=== PATIENT | female | born 2000 | race Caucasian/White ===

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

== ENCOUNTER 2021-12-20 21:32 | Observation (INO) | payer OTHER, MEDICAID, SELFPAY ==
[2021-12-20 21:33] VITALS: BP 157/101; PULSE 98; RESP 14; TEMP 36.1; O2SAT 100; BMI 33.3
--- NOTE | 2021-12-20 21:52 | EDS_ITS ---
HPI HPI - GI History of Present Illness Chief Complaint: Abd Pain Narrative Narrative: 21-year-old female presenting with right-sided abdominal pain. She said it started pretty abruptly after work. She noted 730 was getting worse. She took ibuprofen and her pain is improving. She expresses that she has nausea with this. She has a history of kidney stones in the past. She herself thinks she has appendicitis. She does have pain in the right lower abdomen. No diarrhea or constipation. No urinary complaints. No vaginal complaints. Patient is on control and states her menstrual periods are irregular. She does not believe she is as she had her menses 2 weeks ago. PFSH PFS Medical History Anxiety Depression Allergy/AdvReac Type Severity Reaction Status Date / Time No Known Allergies Allergy Verified 12/20/21 21:33 Surgical History no surgical history Social History Smoking Status: Never smoker ROS ROS ED Constitutional Constitutional ED: Denies chills or fever(s) ENT ENT ED: Denies rhinorrhea or sore throat Cardiovascular Cardiovascular: Denies palpitations or racing heartbeat Respiratory/Chest Respiratory/Chest: Denies cough or dyspnea Gastrointestinal Gastrointestinal: Reports abdominal pain and nausea; Denies constipation, diarrhea or vomiting Genitourinary Genitourinary ED: Denies dysuria or hematuria Musculoskeletal Musculoskeletal: Denies arthralgias or myalgias Integumentary Denies rash Neurologic Neurologic: Denies headache(s) or weakness Psychiatric Psychiatric: Denies anxiety or depression EXAM Physical Exam Const Vital Signs: 12/20/21 21:33 12/20/21 22:46 Temperature 97 F L Temperature Source Temporal Pulse Rate 98 102 H Respiratory Rate 14 18 Blood Pressure 157/101 H 156/74 H Blood Pressure Mean 119 101 Pulse Ox 100 98 Oxygen Delivery Method Room Air Room Air Positive well nourished and obese General Appearance ED: NAD; Negative for pallor Nutritional Appearance: obese HEENT normocephalic and atraumatic Eyes PERRL and EOMs intact bilaterally Resp normal respiratory effort and clear to auscultation bilaterally Cardio regular rate and regular rhythm GI Palpation: tender RLQ Back/Spine no CVA tenderness Neuro Sensorium / Orientation: alert, oriented to person, oriented to place and oriented to time Psych mental status grossly normal Skin General Skin Exam: Negative for jaundice or pallor MDM MDM MDM Narrative Medical decision making narrative: Patient presenting with right flank/lower abdominal pain. Is been ongoing for about 4 5 hours. She has history of kidney stone but she does not believe it is a kidney stone. Initially she declined analgesia but was amenable to Zofran. She is given this and her nausea did improve. CBC and BMP are obtained and she has a leukocytosis of 14.5. Hemoglobin 11.6, platelets 353. LFTs are normal and renal function electrolytes are within normal limits. Urinalysis is negative for occult blood or infection. At this point I did order a CT of the abdomen pelvis with IV contrast which identifies acute appendicitis. On reevaluation the patient is still having pain and since she has acute appendicitis she wants to be treated. She is given morphine 4 mg IV, 1 L of normal saline, Zosyn 3.375 mg. Patient was discussed with Dr. Barreto who will admit the patient overnight and plans to do appendectomy tomorrow. Patient amenable to this plan and admitted in stable condition. Impression: 1. Acute appendicitis Lab Data Attestation: I reviewed the patient's lab results. Labs: Laboratory Results - last 24 hr 12/20/21 12/20/21 12/20/21 22:00 22:05 22:05 WBC 14.5 H RBC 3.93 L Hgb 11.6 L Hct 34.8 L MCV 88.5 MCH 29.5 MCHC 33.3 RDW Std Deviation 38.4 RDW Coeff of Samuel 11.9 Plt Count 353 MPV 9.4 Immature Gran % (Auto) 0.300 Neut % (Auto) 66.8 Lymph % (Auto) 23.2 [place] % (Auto) 8.8 Eos % (Auto) 0.4 Baso % (Auto) 0.5 Absolute Neuts (auto) 9.7 H Absolute Lymphs (auto) 3.37 Nucleated RBC % 0 Sodium 139 Potassium 4.3 Chloride 108 H Carbon Dioxide 26.0 Anion Gap 5 BUN 13 Creatinine 0.74 Estim Creat Clear Calc 116.95 Est GFR (MDRD) Af Amer 127 Est GFR (MDRD) Non-Af 105 BUN/Creatinine Ratio 17.6 Glucose 95 Calcium 9.1 Total Bilirubin 0.30 AST 31 ALT 24 Alkaline Phosphatase 82 Total Protein 7.4 Albumin 3.6 Globulin 3.8 Albumin/Globulin Ratio 0.9 Serum , Qual Urine Color Yellow Urine Clarity Clear Urine pH 7.0 Ur Specific [place] 1.015 Urine Protein Negative Urine Glucose (UA) Normal Urine Ketones Negative Urine Occult Blood Negative Urine Nitrite Negative Urine Bilirubin Negative Urine Urobilinogen Normal Ur Leukocyte Esterase Negative Urine RBC 0 SEEN Urine WBC 0-5 SEEN Ur Squamous Epith Cells 0-5 SEEN Urine Bacteria 0 SEEN Urine Mucus 0 SEEN 12/20/21 22:05 WBC RBC Hgb Hct MCV MCH MCHC RDW Std Deviation RDW Coeff of Samuel Plt Count MPV Immature Gran % (Auto) Neut % (Auto) Lymph % (Auto) [place] % (Auto) Eos % (Auto) Baso % (Auto) Absolute Neuts (auto) Absolute Lymphs (auto) Nucleated RBC % Sodium Potassium Chloride Carbon Dioxide Anion Gap BUN Creatinine Estim Creat Clear Calc Est GFR (MDRD) Af Amer Est GFR (MDRD) Non-Af BUN/Creatinine Ratio Glucose Calcium Total Bilirubin AST ALT Alkaline Phosphatase Total Protein Albumin Globulin Albumin/Globulin Ratio Serum , Qual NEGATIVE Urine Color Urine Clarity Urine pH Ur Specific [place] Urine Protein Urine Glucose (UA) Urine Ketones Urine Occult Blood Urine Nitrite Urine Bilirubin Urine Urobilinogen Ur Leukocyte Esterase Urine RBC Urine WBC Ur Squamous Epith Cells Urine Bacteria Urine Mucus Radiography Diagnostic Testing: Clinical Impression(s) from Imaging Studies Abdomen/Pelvis CT 12/20/21 22:41 IMPRESSION: 1. Findings consistent with appendicitis. No evidence of perforation or abscess. 2. Otherwise normal CT of the abdomen and pelvis. Electronically Signed: Chele Hylton DO at 23:25 EST Reading Location ID and State: [address] [place] [address] Tel [phone], Service support , Discharge Plan Triage Chief Complaint: Abd Pain ED Provider: Hossein Chacon Dx/Rx/DC Orders Primary Care Provider: Care Physician,No Primary
[2021-12-20] MEDS: Ondansetron 4 MG/2 ML Vial IV (22:05)
[2021-12-20 22:28] LABS: Bacteria 0 SEEN /hpf (None Seen); Mucous, Urine 0 SEEN /hpf (<or=2+); Red Blood Cells-Urine 0 SEEN /hpf (0-5)
[2021-12-20 22:31] LABS: Color, Urine Yellow (Yellow); Glucose, Dipstick Normal (Normal); Ketone-Dipstick Negative (Negative); Leukocyte Esterase-Dipstick Negative /ul (Negative); Nitrite-Dipstick Negative (Negative); Occult Blood-Urine Negative /ul (Negative); Protein-Dipstick Negative (Negative); Specific Gravity, Urine 1.015 (1.002-1.030); Urine Bilirubin Dipstick Negative (Negative); Urine Clarity Clear (Clear); Urine Urobilinogen Normal (Normal)
[2021-12-20 22:38] LABS: Absolute Lymphocyte Count 3.37 X10^3/uL (0.83-4.51); Absolute Neutrophil Count 9.7 X10^3/uL (2.0-7.7); Basophil# 0.07 X10^3/uL; Basophil% 0.5 % (0-1); Eosinophil# 0.06 X10^3/uL; Eosinophils% 0.4 % (0-5); Hematocrit 34.8 % (37-47); Hemoglobin 11.6 g/dL (12.0-15.0); Lymphocyte # 3.37 X10^3/ul (0.83-4.51); Lymphocyte % 23.2 % (19-41); Mean Corp Hgb Conc 33.3 g/dL (32-36); Mean Corpuscular Hgb 29.5 pg (27.0-32.0); Mean Corpuscular Volume 88.5 fL (81-99); Mean Platelet Vol. 9.4 fl (6.2-12.0); Monocyte# 1.28 X10^3/uL; Monocyte% 8.8 % (0-10); NRBC Flagged by Analyzer 0 % (0-5); Neutrophil # 9.67 X10^3/uL (2.7-7.7); Neutrophil % 66.8 % (47-70); Platelet Count 353 K/mm3 (150-450); RBC Distribution Width CV 11.9 % (11.6-14.6); RBC Distribution Width SD 38.4 fl (35.1-43.9); Red Blood Count 3.93 M/mm3 (4.2-5.4); White Blood Count 14.5 K/mm3 (4.4-11.0)
--- NOTE | 2021-12-20 22:41 | CT_ITS ---
We are attempting to reach an attending provider to discuss findings. An addendum with communication details will be sent when the communication is complete. STUDY: CT ABDOMEN AND PELVIS WITH CONTRAST REASON FOR EXAM: Female, 21 years old. Right lower quadrant abdominal pain for 3 hours RADIATION DOSAGE (If Supplied By Facility): CTDIvol = ( 11.82 ) mGy, DLP = ( 963.08 ) mGycm TECHNIQUE: Transaxial images were obtained from the dome of the diaphragm to the symphysis pubis without oral contrast. IV 100mL Isovue-300 was administered. Sagittal and coronal images were reconstructed. Individualized dose optimization techniques were used for this CT. COMPARISON: None. FINDINGS: The visualized lung bases are unremarkable. The visualized portions of the heart are within normal limits. Normal liver. Normal gallbladder and extrahepatic biliary system. Normal spleen. Normal pancreas. Normal bilateral adrenal glands. Normal right kidney. Normal left kidney. Normal visualized ureters. Normal visualized stomach. Normal small intestine. Normal colon. The tip of the retrocecal appendix is enlarged measuring 1.4 cm in diameter. The appendiceal wall measures 3 mm. There is diffuse stranding about the appendix. There is no evidence of perforation or abscess. Normal abdominal aorta. Normal inferior vena cava. Normal retroperitoneum. Normal urinary bladder. Normal uterus and adnexa. No pelvic lymphadenopathy. No free air or free fluid is seen within the peritoneal cavity. Normal abdominal wall. Normal osseous structures. CT/Abdomen/Pelvis W IV Cont ONLY IMPRESSION: 1. Findings consistent with appendicitis. No evidence of perforation or abscess. 2. Otherwise normal CT of the abdomen and pelvis. Electronically Signed: Chele Hylton DO at 23:25 EST ,
[2021-12-20 22:46] VITALS: BP 156/74; PULSE 102; RESP 18; O2SAT 98
[2021-12-20 22:49] LABS: Squamous Epithelial Cells - UA 0-5 SEEN /hpf (5-10); White Blood Cells 0-5 SEEN /hpf (0-5)
[2021-12-20 22:51] LABS: Internal QC Validated? YES +Cl - CLEAR BKGD; Pregnancy, Serum, hCG Quali. NEGATIVE Negative
[2021-12-20 22:52] LABS: ALB/GLOB Ratio 0.9 RATIO (0.9-2.4); AST(SGOT) 31 U/L (15-37); Alanine Aminotransfer ALT/SGPT 24 U/L (13-56); Albumin, Serum 3.6 g/dL (3.2-5.0); Alkaline Phosphatase 82 U/L (45-117); Anion Gap 5 (5-15); BUN 13 mg/dL (7-18); BUN/Creat Ratio 17.6 RATIO (10-20); Calcium,Total 9.1 mg/dL (8.5-10.1); Chloride 108 mmol/L (98-107); Creatinine, Serum 0.74 mg/dL (0.55-1.02); EST Glomerular Filtration Rate 105 mL/min (>60); Est Glom Filt Rate - Afr Amer 127 mL/min (>60); Estimated Creatinine Clearance 116.95 ml/min; Globulin 3.8 g/dL (2.2-4.2); Glucose 95 mg/dL (74-106); Potassium 4.3 mmol/L (3.5-5.1); Protein, Total 7.4 g/dL (6.4-8.2); Sodium Level 139 mmol/L (136-145)
[2021-12-20] MEDS: Morphine 4 MG/ML Syringe IV (23:55)
[2021-12-20 23:59] VITALS: BP 142/69; PULSE 84; RESP 16; TEMP 36.1; O2SAT 98
[2021-12-20] MEDS: 0.9% Normal Saline 1,000 ML 999 ML IV (23:59)
[2021-12-20] MEDS: Piperacil/Tazobactam 3.375 GM/50 ML ML IV (23:59)
[2021-12-21] VITALS (12 sets, daily range): BP systolic 126–154; BP diastolic 68–82; PULSE 76–99; RESP 15–18; TEMP 36.6–37.4; O2SAT 97–100; BMI 32.8; BMI 31.7
[2021-12-21] MEDS: 0.9% Normal Saline 1,000 ML 75 ML IV ×2 (01:28→07:58)
[2021-12-21] MEDS: Ondansetron 4 MG/2 ML Vial IV (06:20)
[2021-12-21] MEDS: HYDROmorphone 0.5 MG/0.5 ML SYRINGE IV (06:21)
[2021-12-21] MEDS: Piperacil/Tazobactam 3.375 GM Q8 PREMIX IV (06:40)
--- NOTE | 2021-12-21 07:47 | EX.PCM.CON.S ---
Assessment & Plan Assessment/Plan (1) Acute appendicitis: QUALIFIERS: Acute appendicitis type: with localized peritonitis Appendicitis gangrene presence: without gangrene Appendicitis perforation presence: without perforation Appendicitis abscess presence: without abscess Qualified Code(s): K35.30 - Acute appendicitis with localized peritonitis, without perforation or gangrene PLAN: Plan is to perform a laparoscopic appendectomy. We reviewed the pre-operative plans with the patient. Risks and benefits of the procedure were fully explained, including but not limited to infection, neurovascular injury, continued pain, arthritis, stiffness, need for further surgery, re-injury, DVT, PE, general risks of anesthesia, and loss of the limb or life. The patient understands all the risks and does wish to proceed with written consent. HPI Consult Data Date of Consult: 12/21/21 HPI Narrative HPI Narrative: IRINA ARNETT, is a 1-year-old female presenting with right-sided abdominal pain. She said it started pretty abruptly after work. She noted 730 was getting worse. She took ibuprofen and her pain is improving. She expresses that she has nausea with this. She has a history of kidney stones in the past. She herself thinks she has appendicitis. She does have pain in the right lower abdomen. No diarrhea or constipation. No urinary complaints. No vaginal complaints. Patient is on control and states her menstrual periods are irregular. She does not believe she is as she had her menses 2 weeks ago. [facility] Medical History Anxiety Depression Kidney stones Migraines Home Medications etonogestrel [Implanon] 68 mg SUBDERMAL X1 12/21/21 [History Last Taken Unknown] ibuprofen 600 mg PO Q8H PRN 12/21/21 [History Last Taken Unknown] Allergy/AdvReac Type Severity Reaction Status Date / Time Iodinated Contrast Media Allergy Hives Verified 12/21/21 00:50 poison bryce extract AdvReac Anaphylaxis Verified 12/21/21 00:50 Surgical History no surgical history Social History Smoking Status: Never smoker ROS Constitutional Constitutional: Denies chills, fatigue or fever(s) Cardiovascular Cardiovascular: Denies chest pain Respiratory/Chest Respiratory/Chest: Denies cough or dyspnea Gastrointestinal Gastrointestinal: Reports abdominal pain and nausea; Denies constipation, diarrhea or vomiting Genitourinary Genitourinary: Denies difficulty urinating Physical Exam Const alert, oriented x3 and no apparent distress General Appearance: cooperative HEENT normocephalic and head/scalp atraumatic Eyes PERRL and EOMs intact bilaterally Resp clear to auscultation bilaterally Cardio Rate: regular rate Rhythm: regular rhythm GI Palpation: tender McBurney's point and guarding Extremity full ROM Lab / Micro Data Result Diagrams: 12/20/21 22:05 12/20/21 22:05 Labs: Laboratory Results - last 24 hr 12/20/21 22:00: Urine Color Yellow, Urine Clarity Clear, Urine pH 7.0, Ur Specific [place] 1.015, Urine Protein Negative, Urine Glucose (UA) Normal, Urine Ketones Negative, Urine Occult Blood Negative, Urine Nitrite Negative, Urine Bilirubin Negative, Urine Urobilinogen Normal, Ur Leukocyte Esterase Negative, Urine RBC 0 SEEN, Urine WBC 0-5 SEEN, Ur Squamous Epith Cells 0-5 SEEN, Urine Bacteria 0 SEEN, Urine Mucus 0 SEEN 12/20/21 22:05: WBC 14.5 H, RBC 3.93 L, Hgb 11.6 L, Hct 34.8 L, MCV 88.5, MCH 29.5, MCHC 33.3, RDW Std Deviation 38.4, RDW Coeff of Samuel 11.9, Plt Count 353, MPV 9.4, Immature Gran % (Auto) 0.300, Neut % (Auto) 66.8, Lymph % (Auto) 23.2, [place] % (Auto) 8.8, Eos % (Auto) 0.4, Baso % (Auto) 0.5, Absolute Neuts (auto) 9.7 H, Absolute Lymphs (auto) 3.37, Nucleated RBC % 0 12/20/21 22:05: Sodium 139, Potassium 4.3, Chloride 108 H, Carbon Dioxide 26.0, Anion Gap 5, BUN 13, Creatinine 0.74, Estim Creat Clear Calc 116.95, Est GFR (MDRD) Af Amer 127, Est GFR (MDRD) Non-Af 105, BUN/Creatinine Ratio 17.6, Glucose 95, Calcium 9.1, Total Bilirubin 0.30, AST 31, ALT 24, Alkaline Phosphatase 82, Total Protein 7.4, Albumin 3.6, Globulin 3.8, Albumin/Globulin Ratio 0.9 12/20/21 22:05: Serum , Qual NEGATIVE Micro: Microbiology 12/21/21 06:30 Nasal Secretion SARS-CoV-2 Antigen (Rapid) - Final Radiology Impression Abdomen/Pelvis CT 12/20/21 22:41 IMPRESSION: 1. Findings consistent with appendicitis. No evidence of perforation or abscess. 2. Otherwise normal CT of the abdomen and pelvis. Electronically Signed: Chele Hylton DO at 23:25 EST Reading Location ID and State: [facility] / [place] Tel [phone], Service support , ADDENDUM: 12/21/21 0000 IMPRESSION: 1. Findings consistent with appendicitis. No evidence of perforation or abscess. 2. Otherwise normal CT of the abdomen and pelvis. N.B. : The above Results were Read Back by Chele Hylton DO to Hossein Chacon DO, and understanding confirmed on 12/20/2021 23:53:31 (ET). Electronically Signed: Chele Hylton DO at 23:25 EST Reading Location ID and State: [facility] Tel [phone], Service support ,
--- NOTE | 2021-12-21 09:00 | APP_PTH ---
PATIENT: IRINA ARNETT LOC: MS3 U#:[id number] AGE/SX: 21/F ROOM: MS319 RE12/21/[address]: Dr. Javier Barreto MD : 2000 BED: 1 DIS: 12/21/2021 SPEC #: [id number] RECD: 12/23/21 07:15 STATUS: YEVGENIY REPastora #: [id number] RAMONE: 12/21/21 09:[address]: Javier Barreto DEPT: SURGICAL PATHOLOGY RECD BY: Coreen Mccracken ENTERED: 12/23/21 08:43 SP TYPE: APPENDIX OTHR DR: No Primary Care Phys Tissues: Appendix, NOS Procedures: Surgery Specimen Level III HEADER OPERATION: Laparoscopic appendectomy PRE-OP DIAGNOSIS: Acute appendicitis TISSUE SUBMITTED: Appendix MICROSCOPIC DIAGNOSIS Appendix, appendectomy: Acute necrotizing appendicitis. Acute serositis. AM:caryn 12/24/2021 MICROSCOPIC DESCRIPTION Slides are reviewed. GROSS DESCRIPTION Received in fixative is one container labeled with the patient's name and designated appendix. The specimen consists of an appendix measuring 6.5 cm in length and 1.2 cm in average diameter. No gross perforations are evident. Serial sections reveal a patent lumen. No mass lesion is identified. [employer] sections are submitted in two cassettes. / AM:caryn 12/23/2021 TC:2 CPT: 17946
--- NOTE | 2021-12-21 09:07 | NURSING ---
Report given to OR nurse and [facility] transported patient down to surgery at this time. Patient boyfriend and Mother were at the bedside.
[2021-12-21] MEDS: Bupivacaine Mpf 0.5% 30 ML VIAL (09:53)
--- NOTE | 2021-12-21 10:24 | EX.PCM.DISCH ---
Discharge Instructions Procedure Appendectomy Diet Discharge Diet: Light diet - advance as tolerated (if you have questions about your diet instructions, please talk to you doctor.) Activity Discharge Activity: May Not Drive (for 3-5 days or while taking narcotic pain meds.) May shower in (days): 1 Dressing / Incision Call your doctor if your incision/area has: Continuous Slow Oozing, Sudden Increased Bleeding, Increased Pain/ Swelling, Increased Redness and Foul Smelling Discharge Call your doctor if you observe: Fever of 101 or Higher Suture Line Care: Avoid Pulling/Pushing and Avoid Pinching/Bending Additional Dressing/Incision Instructions:: Keep dressing clean and dry. Change or remove dressing in 2 days. Leave steri strips for 1 week. May protect with a gauze bandaid. Follow Up Care Please Follow Up With: Ana George PA-C When: Call office to schedule an appointment to be seen in 1 week. Test Results: Test results from this visit will be discussed in further detail at your follow-up appointment, if applicable. Discharge Plan Admission Admit Date/Time: 12/21/21 00:32 Attending Provider: Javier Barreto Primary Care Provider: Care Physician,Chantal Primary Discharge Orders/Prescriptions Prescriptions: New oxycodone-acetaminophen [Endocet] 5-325 mg tablet 1 tab PO Q4H PRN (Reason: pain) 5 Days Qty: 20 RF: 0 No Action ibuprofen 600 mg Tablet 600 mg PO Q8H PRN (Reason: control) RF: 0 Implanon 68 mg Implant 68 mg SUBDERMAL X1 RF: 0 Referrals / Follow Up: Care Physician,No Primary [Primary Care Provider] - Ana George PA-C [PHYSICIAN CAREER DEVELOPMENT ASSOCIATE] -
--- NOTE | 2021-12-21 10:25 | OP.PCM_ITS ---
Problems Associated Problem List Diagnoses (1) Acute appendicitis: Report of Operation Date of Procedure: 12/21/21 Pre-Operative Diagnosis: Acute appendicitis Post-Operative Diagnosis: Same Surgery/Procedure Performed:: Laparoscopic appendectomy Surgeon: Javier Barreto metal box maker: Tristin Mei Type of Anesthesia: General Anesthesiologist: Nguyễn Smalls Specimen's removed: Appendix Drains: None Estimated Blood Loss (mL): < 25 cc Description of Procedure: Patient was brought into the operating room. Placed in the supine position. Under excellent general endotracheal intubation the abdomen was sterilely prepped and draped in the usual fashion. Local was injected infraumbilically. Dissection was carried down to the fascia. Fascia is grasped with a [place]. Varies needle was placed inside the abdomen. The abdomen was insufflated to 15 torr. A 10/12 trocar was placed without difficulty. Patient was placed in the headdown. Suprapubic #5 trochars placed, left lower quadrant #5 trocar was placed. Both of these were placed under direct visualization without injury to underlying structures. Patient was noted to have a retrocecal appendicitis. I took down the mesoappendix with the Enseal and I transected the base of the appendix with a 45 linear cutter. Use electrocautery for touch prep pneumostasis on the appendiceal stump. Placed the specimen in a specimen bag delivered through the umbilical port without difficulty. Irrigated out the pelvis no pus was identified around the small bowel no Meckel's diverticulum was identified. Trochars were removed under direct visualization. Chu stasis was noted. Fascia the umbilicus was closed with a [id number] stitch of 0 Vicryl. Skin incisions were closed with subcuticular stitches of 4-0 Monocryl. Steri-Strips were applied. Sterile dressings were applied. The patient tolerated the procedure well. Admit VTE Documentation VTE Present on Admission: No VTE Mechan Device Prophylaxis: SCD's VTE Pharm Prophylaxis ordered?: No Reason prophylaxis not ordered:: Treatment Not Indicated
== END 2021-12-21 13:02 | disposition home or self-care (01) ==
LOC: ED 22:09 → MS3 12-21 00:27
PROVIDERS: Admitting Provider Surgery; Emergency Provider Student in an Organized Health Care Education/Training Program; Visit Provider Surgery
PROC: 0DTJ4ZZ Resection of Appendix, Percutaneous Endoscopic Approach (ICD-10-PCS; CPT 44970; principal; 2021-12-21 09:00)
DX: K35.30 Acute appendicitis with localized peritonitis, without perforation or gangrene (principal)
CPT/HCPCS: 44970; 00840; C1760; 74177; 80053; 81001; 84703; 85025; 87426; 88304; 96361; 96365; 96375; 96376; 99218; 99284; J7030; J7050; Q9967; A4216; G0378; J2405